=== PATIENT | male | born 1945 | race Hispanic/Latino ===

== ENCOUNTER → 2019-03-21 | Outpatient (CLI) | payer MEDICARE ==
[~2019-03-21] MED LIST: FENTANYL CITRATE/PF 100MCG/2 ML INJ ONE; GELATIN SPONGE 12-7MM ONE; MIDAZOLAM HCL 2 MG/2 ML VIAL ONE
[2019-03-21 08:50] LABS: INR 0.92; PROTHROMBIN TIME 12.9 seconds (11.9-14.5)
[2019-03-21 08:51] LABS: PARTIAL THROMBOPLASTIN TIME 38.2 seconds (23.8-35.5)
--- NOTE | 2019-03-21 10:42 | Diagnostic Imaging Report ---
Ultrasound guided non-targeted liver biopsy Comparison: None. Consent: The nature of the procedure, including its risks, benefits and alternatives was explained to the patient who understood and gave informed, written consent. Operators: Jennifer Shields MD Anesthesia: Intravenous conscious sedation was administered by radiology nursing. Continuous hemodynamic and respiratory monitoring was performed, including the use of pulse oximetry. Medications: IV Fentanyl 100 mcg IV Versed 2 mg 10 cc of 1% subcutaneous lidocaine Specimens: Two 2 cm core biopsies of the right hepatic lobe Estimated blood loss: No significant blood loss. TECHNIQUE: The patient was placed in the supine position. Ultrasound demonstrated a satisfactory path to the right hepatic lobe. The skin of the right upper abdomen was marked, prepped, draped and anesthetized with 1% lidocaine. With ultrasound guidance, a 16 gauge introducer needle was inserted into the right hepatic lobe. Subsequently, two 2 cm core biopsies were obtained with an 18 gauge core biopsy device. The samples were placed into Formalin. Gelfoam embolization of the tract was performed and the introducer needle was removed. Sterile dressing was placed. Samples were sent to pathology. The patient tolerated the procedure well. IMPRESSION: Ultrasound guided non-targeted core biopsy of the right hepatic lobe as above. Signed by: Dr. Jennifer Shields MD on 03/21/2019 10:39 AM
== END ==
LOC: US 08:01
PROVIDERS: ATTEND Internal Medicine Gastroenterology
DX: R74.8 Abnormal levels of other serum enzymes (principal); E10.9 Type 1 diabetes mellitus without complications; I10 Essential (primary) hypertension; E66.3 Overweight
CPT/HCPCS: 36415; 47000; 76942; 85049; 85610; 85730; 88307; J2250

== ENCOUNTER → 2023-04-30 | Outpatient (CLI) | payer MEDICARE ==
[~2023-04-30] MED LIST changes: -FENTANYL CITRATE/PF 100MCG/2 ML INJ ONE; +FUROSEMIDE INJ 10 MG/ML 4 ML VIAL ONE; -GELATIN SPONGE 12-7MM ONE; -MIDAZOLAM HCL 2 MG/2 ML VIAL ONE
== END ==
LOC: NM 13:38
PROVIDERS: ATTEND Urology
DX: N13.30 Unspecified hydronephrosis (principal)
CPT/HCPCS: 78708; A9562; J1940